=== PATIENT | female | born 1955 | race Caucasian/White ===

== ENCOUNTER 2024-08-23 11:19 | Outpatient (CLI) | payer BC ==
[2024-08-23] MEDS ORDERED: Magnevist 469MG/ML 20 ML VIAL ONE (15:55)
== END 2024-08-23 11:20 | disposition home or self-care (01) ==
LOC: MRI 11:19
PROVIDERS: ATTEND Radiology Radiation Oncology
DX: G50.0 Trigeminal neuralgia (principal)
CPT/HCPCS: 70553; 76376